=== PATIENT | female | born 1995 | race African-American/Black ===

== ENCOUNTER 2018-03-09 08:12 | Emergency (ER) | payer OTHER, MEDICAID ==
[~2018-03-09] VITALS: Ht 167.6 cm; Wt 48.5 kg
[2018-03-09 08:19] VITALS: BP 111/66
[2018-03-09] MEDS ORDERED: TRAMADOL 50 MG50 MG PO ×2 (08:22→08:43)
[2018-03-09] MEDS ORDERED: NEURONTIN600 MG PO (08:23)
== END 2018-03-09 09:03 | disposition home or self-care (01) ==
LOC: M.ERS 08:12
DX: M54.9 Dorsalgia, unspecified (principal); Z76.0 Encounter for issue of repeat prescription